=== PATIENT | male | born 1970 | race American Indian/Alaskan Native ===

== ENCOUNTER 2016-12-16 12:17 | Emergency (ER) | payer SELFPAY ==
--- NOTE | 2016-12-16 12:57 | C.PDOC ---
History Of Present Illness 46 yr old male brought in via BLS, presents to the ER found passed out in the street next to a "cracked crack vile". ROS is unable to be obtained. Time Seen by Provider: 12/16/16 12:57 Chief Complaint (Nursing): Substance Abuse History Per: EMS History/Exam Limitations: intoxication Onset/Duration Of Symptoms: Unknown Modifying Factor(s): Crack Past Medical History Reviewed: Historical Data, Nursing Documentation, Vital Signs Vital Signs: Last Vital Signs Temp 97.8 F 12/16/16 12:31 Pulse 83 12/16/16 12:31 Resp 9 L 12/16/16 12:31 BP 128/70 12/16/16 12:31 Pulse Ox 98 12/16/16 14:27 Family History: States: No Known Family Hx - Social History Hx Alcohol Use: Yes Hx Substance Use: Yes - Immunization History Hx Tetanus Toxoid Vaccination: No Hx Influenza Vaccination: No Hx Pneumococcal Vaccination: No Review Of Systems Review Of Systems: ROS cannot be obtained secondary to pt's inabilty to answer questions. Physical Exam - Physical Exam Appears: Non-toxic, Other ((+) Lethargic ) Skin: Warm, Dry, No Rash Eye(s): bilateral: Other (Pin point pupils ) Ear(s): Bilateral: Normal Chest: Symmetrical, No Tenderness Cardiovascular: Rhythm Regular, No Murmur Respiratory: Normal Breath Sounds, No Rales, No Rhonchi, No Stridor, No Wheezing Extremity: Normal ROM, No Tenderness, No Swelling Neurological/Psych: Other (Patient awakes with obnoxious stimuli and goes back to sleep. ) Pain Response: Withdraws With Pain ED Course And Treatment - Laboratory Results Result Diagrams: 12/16/16 14:02 12/16/16 14:02 O2 Sat by Pulse Oximetry: 98 Medical Decision Making Medical Decision Makin spo2 91% so narcan was given and pt immediately woke up and had episode of vomiting. 1518 pt up yelling, causing disturbance, requesting to leave Disposition - Disposition Referrals: [facility] [Outside] [facility] [Outside] Disposition: HOME/ ROUTINE Disposition Time: 15:19 Condition: STABLE Forms: General Discharge Instructions - Clinical Impression Clinical Impression: Drug abuse - Scribe Statement The provider has reviewed the documentation as recorded by the Yiselibe Agustina Muriel Provider Attestation: All medical record entries made by the Scribe were at my direction and personally dictated by me. I have reviewed the chart and agree that the record accurately reflects my personal performance of the history, physical exam, medical decision making, and the department course for this patient. I have also personally directed, reviewed, and agree with the discharge instructions and disposition.
[2016-12-16] MEDS ORDERED: Naloxone 0.4 mg/ml Inj (Adult) IVP ONE (13:30)
[2016-12-16] MEDS ORDERED: Naloxone 0.4 mg/ml Inj (Adult) ONE (13:51)
[2016-12-16 14:05] LABS: BASO % 0.8 % (0.0-2.0); EOS # 0.2 K/uL (0.0-0.7); EOS % 3.9 % (0.0-4.0); HEMOGLOBIN 10.7 g/dL (12.0-18.0); LYMPH # 1.8 K/uL (1.0-4.3); LYMPH % 33.2 % (20.0-40.0); MEAN CELL VOLUME 86.1 fL (80.0-94.0); MEAN CORPUSCULAR HEMOGLOBIN 27.3 pg (27.0-31.0); MEAN CORPUSCULAR HGB CONC 31.7 g/dL (33.0-37.0); MEAN PLATELET VOLUME 8.3 fL (7.2-11.7); MONO # 0.5 K/uL (0.0-0.8); MONO % 10.2 % (0.0-10.0); NEUT # 2.8 K/uL (1.8-7.0); NEUT % 51.9 % (50.0-75.0); NRBC % 0.1 % (0.0-2.0); RBC 3.92 Mil/uL (4.40-5.90); RED CELL DISTRIBUTION WIDTH 14.6 % (11.5-14.5); WHITE BLOOD COUNT 5.4 K/uL (4.8-10.8)
[2016-12-16 14:17] LABS: ALBUMIN 3.1 g/dL (3.5-5.0)
[2016-12-16 14:20] LABS: ALB/GLOB RATIO 0.9 (1.0-2.1); ALT/SGPT 23 U/L (21-72); AST/SGOT 21 U/L (17-59); BLOOD UREA NITROGEN 16 mg/dL (9-20); CALCIUM 8.3 mg/dl (8.6-10.4); GFR AFRICAN-AMERICAN > 60; GFR NON-AFRICAN AMERICAN > 60
[2016-12-16 15:25] VITALS: BP 120/70; PULSE 82; RESP 16; TEMP 98; O2SAT 99
== END 2016-12-16 15:40 | disposition home or self-care (01) ==
LOC: C.ER 12:17
DX: F19.10 Other psychoactive substance abuse, uncomplicated (principal)
CPT/HCPCS: 80053; 85025; 96374; 99285; G0480; J2310

== ENCOUNTER 2018-08-08 22:01 | Emergency (ER) | payer MEDICAID, OTHER ==
--- NOTE | 2018-08-09 00:34 | C.PDOC ---
History Of Present Illness 47 year old male is brought to the ED by ambulance for evaluation of acute alcohol intoxication for an unknown duration. Patient admits to drinking earlier today. He does not offer any physical complaints at this time. Time Seen by Provider: 08/08/18 22:07 Chief Complaint (Nursing): Substance Abuse History Per: Patient, EMS History/Exam Limitations: intoxication Onset/Duration Of Symptoms: Hrs Current Symptoms Are (Timing): Still Present Suicide/Self Injury Attempted (Context): None Modifying Factor(s): Alcohol Involuntary Hold By: None Recent travel outside of the [place]: No Additional History Per: Patient, EMS Past Medical History Reviewed: Historical Data, Nursing Documentation, Vital Signs Vital Signs: Last Vital Signs Temp 97.5 F L 08/08/18 22:32 Pulse 89 08/08/18 22:32 Resp 19 08/08/18 22:32 BP 174/97 H 08/08/18 22:32 Pulse Ox 97 08/08/18 22:32 - Medical History PMH: HTN Surgical History: No Surg Hx Family History: States: Unknown Family Hx - Social History Hx Alcohol Use: Yes Hx Substance Use: Yes - Immunization History Hx Tetanus Toxoid Vaccination: No Hx Influenza Vaccination: No Hx Pneumococcal Vaccination: No Review Of Systems Except As Marked, All Systems Reviewed And Found Negative. Cardiovascular: Negative for: Chest Pain Gastrointestinal: Negative for: Vomiting Physical Exam - Physical Exam Additional Physical Exam Comments: Constitutional: No acute distress. Visibly intoxicated Head: Normocephalic. Atraumatic. Eyes: PERRL. ENT: Moist mucous membranes. Alcohol on breath. Neck: Supple. Cardiovascular: Regular rate. Radial pulse 2+ bilaterally. Chest: No tenderness. Respiratory: Clear to auscultation bilaterally. GI: Soft. Nontender. Nondistended. Back: No CVA tenderness. Musculoskeletal: No tenderness or swelling of extremities. Skin: No rash. Neurologic: Arousable to touch and verbal stimuli ED Course And Treatment O2 Sat by Pulse Oximetry: 97 (on RA) Pulse Ox Interpretation: Normal Medical Decision Making Medical Decision Making: Observed in ED for sobriety before discharge. Disposition - Disposition Disposition: HOME/ ROUTINE Disposition Time: 01:00 Condition: STABLE Instructions: Alcohol Abuse and Alcoholism (DC) Forms: [employer] (Belgian) - Clinical Impression Clinical Impression: Alcohol intoxication - Scribe Statement The provider has reviewed the documentation as recorded by the Scribe (Gisell Thomas) Provider Attestation: All medical record entries made by the Scribe were at my direction and personally dictated by me. I have reviewed the chart and agree that the record accurately reflects my personal performance of the history, physical exam, medical decision making, and the department course for this patient. I have also personally directed, reviewed, and agree with the discharge instructions and disposition.
[2018-08-09 04:42] VITALS: BP 135/85; PULSE 100; RESP 18; TEMP 98.6; O2SAT 97
== END 2018-08-09 05:20 | disposition home or self-care (01) ==
LOC: C.ER 22:01
DX: F10.129 Alcohol abuse with intoxication, unspecified (principal)

== ENCOUNTER 2018-10-09 00:22 | Emergency (ER) | payer MEDICAID, OTHER ==
[2018-10-09 00:26] VITALS: O2SAT 100
--- NOTE | 2018-10-09 00:39 | C.PDOC ---
History Of Present Illness Patient is sent from Longterm for evaluation of questionable right lower lobe infiltrate, patient speaking in complete sentences in no respiratory distress. Upon arrival patient states he does not want to seen at [facility]. Patient is alert, awake and competent. Patient has allowed for examination but refused imaging, blood work and potential admission. Time Seen by Provider: 10/09/18 00:39 Chief Complaint (Nursing): Medical Clearance History Per: Patient History/Exam Limitations: no limitations Onset/Duration Of Symptoms: Hrs Current Symptoms Are (Timing): Still Present Recent travel outside of the [place]: No Additional History Per: Patient, Longterm Past Medical History Reviewed: Historical Data, Nursing Documentation, Vital Signs Vital Signs: Last Vital Signs Temp 97.5 F L 10/09/18 00:25 Pulse 93 H 10/09/18 00:25 Resp BP 144/104 H 10/09/18 00:25 Pulse Ox 100 10/09/18 00:25 - Medical History PMH: HTN Denies: Chronic Kidney Disease Surgical History: No Surg Hx Family History: States: Unknown Family Hx - Social History Hx Alcohol Use: Yes Hx Substance Use: Yes - Immunization History Hx Tetanus Toxoid Vaccination: No Hx Influenza Vaccination: No Hx Pneumococcal Vaccination: No Review Of Systems Constitutional: Negative for: Fever, Chills Cardiovascular: Negative for: Chest Pain Respiratory: Negative for: Shortness of Breath Gastrointestinal: Negative for: Nausea, Vomiting, Abdominal Pain Skin: Negative for: Rash Neurological: Negative for: Weakness, Numbness, Headache Physical Exam - Physical Exam Appears: Non-toxic, No Acute Distress Skin: Warm, Dry Head: Normacephalic Eye(s): bilateral: Normal Inspection Teeth: No Normal Dentition (Poor dentition) Neck: Supple Chest: Symmetrical, Other (old scar of thoracentesis) Cardiovascular: Rhythm Regular Respiratory: Decreased Breath Sounds (right side), Rales (left side) Gastrointestinal/Abdominal: Soft, No Tenderness, Distention, Other (tympanic to percussion) Extremity: Normal ROM, Pedal Edema (trace bilateral ), Capillary Refill (< 2 seconds), Other (bilateral chronic martina stasis) Pulses: Left Dorsalis Pedis: Normal, Right Dorsalis Pedis: Normal Neurological/Psych: Oriented x3, Normal Speech, Normal Cognition ED Course And Treatment O2 Sat by Pulse Oximetry: 100 (ON RA) Pulse Ox Interpretation: Normal Progress Note: PLan: Patient allowed for examination but refused imaging, blood work and/or possible admission. Patient signed AMA form. 1:33AM spoke with the patient again about allowing blood work and imaging in order to evaluate him, but again he refused. Encouraged to retur Against Medical Advice - AMA Patient Left Against Medical Advice: The patient declines admission to the hospital and wishes to leave the Emergency Department. This action is against my medical advice. This decision was made with informed refusal. The patient was told that admission to the hospital is necessary. Explanation of the reasons why were discussed. The risks of leaving were explained to the patient and include, but are not limited to, worsening of known or currently unknown conditions, permanent disability and from undiagnosed or untreated conditions. The patient has the capacity to make this informed decision and understands my explanation of the current medical problem and risks of leaving. The patient voluntarily accepts these risks and signed an AMA form documenting our conversation. The patient was given the opportunity to ask questions and reconsider. The patient was encouraged to return to the Emergency Department at any time for further care. Disposition Counseled Patient/Family Regarding: Diagnosis, Need For Followup - Disposition Disposition: AGAINST MEDICAL ADVICE Disposition Time: 00:39 Condition: FAIR Forms: [employer] (Algerian), General Discharge Instructions - Clinical Impression Clinical Impression: Medical assessment - Scribe Statement The provider has reviewed the documentation as recorded by the Scribe Jake Gilbert All medical record entries made by the Scribe were at my direction and personally dictated by me. I have reviewed the chart and agree that the record accurately reflects my personal performance of the history, physical exam, medical decision making, and the department course for this patient. I have also personally directed, reviewed, and agree with the discharge instructions and disposition.
[2018-10-09 01:32] VITALS: BP 142/94; PULSE 84; RESP 18; TEMP 97.8
== END 2018-10-09 01:42 | disposition left against medical advice (07) ==
LOC: C.ER 00:22
DX: Z00.00 Encounter for general adult medical examination without abnormal findings (principal)